=== PATIENT | male | born 1965 | race Two or more races ===

== ENCOUNTER 2016-12-15 14:56 | Emergency (ER) | payer MEDICAID, OTHER, SELFPAY ==
[~2016-12-15] VITALS: Ht 170.2 cm; Wt 88.5 kg
[2016-12-15] MEDS ORDERED: NORCO, ANEXSIA 5/325MG TABLET (HYDROcodone/ACETAMINOPHEN) PO ONE (16:45)
[2016-12-15 18:18] LABS: BASO % 0.2 % (0.0-1.0); EOS # 0.3 K/mm3 (0.0-0.50); EOS % 1.6 % (0.0-3.0); LARGE UNSTAINED CELL # 0.1 K/mm3 (0.0-0.4); LARGE UNSTAINED CELL % 0.6 % (0.0-4.0); LYMPH # 1.8 K/mm3 (1.5-4.5); LYMPH % 10.6 % (24.0-44.0); MEAN CORPUSCULAR HEMOGLOBIN 31.4 pg (27.0-33.0); MEAN CORPUSCULAR HGB CONC 33.5 g/dl (32.0-36.5); MEAN CORPUSCULAR VOLUME 93.8 fl (80.0-96.0); MONO # 0.8 K/mm3 (0.0-0.8); MONO % 5.2 % (0.0-5.0); NEUTROPHILS # 13.4 K/mm3 (1.8-7.7); PLATELET COUNT, AUTOMATED 302 k/mm3 (150-450); RED CELL DISTRIBUTION WIDTH 12.4 % (11.5-14.5); WHITE BLOOD COUNT 16.4 K/mm3 (4.0-10.0)
[2016-12-15 18:41] LABS: ANION GAP 8 MEQ/L (8-16); BLOOD UREA NITROGEN 12 MG/DL (7-18); CALCIUM LEVEL 9.4 MG/DL (8.5-10.1); CARBON DIOXIDE LEVEL 30 MEQ/L (21-32); CHLORIDE LEVEL 96 MEQ/L (98-107); GLOMERULAR FILTRATION RATE > 60.0 (>56); GLUCOSE, FASTING 119 MG/DL (70-105); POTASSIUM SERUM 4.1 MEQ/L (3.5-5.1); SODIUM LEVEL 134 MEQ/L (136-145)
[2016-12-15] MEDS ORDERED: FLOM5CAP PO (19:03)
[2016-12-15] MEDS ORDERED: CIPR500T89 PO (19:03)
[2016-12-15] MEDS ORDERED: CIPROFLOXACIN 500 MG TAB PO ONE (19:15)
[2016-12-15 19:19] VITALS: BP 144/78
== END 2016-12-15 19:39 | disposition home or self-care (01) ==
LOC: M ED 16:48
DX: N41.0 Acute prostatitis (principal); R33.9 Retention of urine, unspecified

== ENCOUNTER → 2016-12-15 | Outpatient (CLI) | payer OTHER ==
[~2016-12-15] MED LIST: CIPR500T89 PO; FLOM5CAP PO
--- NOTE | 2016-12-15 16:21 | REP ---
ABDOMINAL SERIES: Supine and erect views of the abdomen demonstrate no free air and no evidence for bowel obstruction. No dilated small bowel loops are seen. Mild fecal material is seen in the right colon. No abnormal calcifications are seen. There are mild degenerative changes of the spine. An accompanying view of the chest demonstrates no acute infiltrate. The heart is normal in size. IMPRESSION: Negative abdominal series. Signed by Endy Farah MD 12/15/2016 04:25 P
== END ==
LOC: M LRY 13:19
PROVIDERS: ATTEND Nurse Practitioner Family
DX: K59.00 Constipation, unspecified (principal)

== ENCOUNTER → 2016-12-15 | Outpatient (REF) | payer OTHER | LOC: M SFHCLERA 13:28 | PROVIDERS: ATTEND Nurse Practitioner Family | DX: R10.2 Pelvic and perineal pain (principal) ==

== ENCOUNTER → 2016-12-22 | Outpatient (REF) | payer SELFPAY ==
[2016-12-22 16:34] LABS: MEAN CORPUSCULAR HEMOGLOBIN 31.1 pg (27.0-33.0); MEAN CORPUSCULAR VOLUME 94.3 fl (80.0-96.0); RED CELL DISTRIBUTION WIDTH 11.9 % (11.5-14.5); WHITE BLOOD COUNT 10.6 K/mm3 (4.0-10.0)
[2016-12-22 16:37] LABS: ALBUMIN 3.4 GM/DL (3.2-5.2); ALBUMIN/GLOBULIN RATIO 0.85 (1.00-1.93); ALKALINE PHOSPHATASE 140 U/L (45-117); ALT/SGPT 70 U/L (12-78); ANION GAP 6 MEQ/L (8-16); AST/SGOT 22 U/L (15-37); BILIRUBIN,TOTAL 0.2 MG/DL (0.2-1.0); BLOOD UREA NITROGEN 11 MG/DL (7-18); CALCIUM LEVEL 8.5 MG/DL (8.5-10.1); CARBON DIOXIDE LEVEL 32 MEQ/L (21-32); CHLORIDE LEVEL 101 MEQ/L (98-107); CREATININE FOR GFR 0.81 MG/DL (0.70-1.30); GLOMERULAR FILTRATION RATE > 60.0 (>56); GLUCOSE, FASTING 98 MG/DL (70-105); POTASSIUM SERUM 4.3 MEQ/L (3.5-5.1); SODIUM LEVEL 139 MEQ/L (136-145); TOTAL PROTEIN 7.4 GM/DL (6.4-8.2)
== END ==
LOC: M LABDRAW1 15:25
PROVIDERS: ATTEND Family Medicine
DX: K62.5 Hemorrhage of anus and rectum (principal)

== ENCOUNTER → 2021-01-24 | Outpatient (REF) | payer OTHER ==
[~2021-01-24] MED LIST changes: +CIPR-249 PO; -CIPR500T89 PO; +FLOM0.4C39 PO; -FLOM5CAP PO
[2021-01-24 10:31] LABS: BASO % 0.3 % (0.0-1.0); EOS # 0.2 10^3/uL (0.0-0.5); EOS % 1.7 % (0.0-3.0); HEMATOCRIT 46.7 % (42.0-52.0); HEMOGLOBIN 14.6 g/dl (13.5-17.5); LYMPH % 23.8 % (24.0-44.0); MEAN CORPUSCULAR HEMOGLOBIN 29.3 pg (27.0-33.0); MEAN CORPUSCULAR HGB CONC 31.3 g/dl (32.0-36.5); MEAN CORPUSCULAR VOLUME 93.8 fl (80.0-96.0); MONO # 0.9 10^3/uL (0.0-0.8); MONO % 7.4 % (2.0-8.0); NEUTROPHILS # 8.3 10^3/uL (1.5-8.5); NEUTROPHILS % 66.4 % (36.0-66.0); PLATELET COUNT, AUTOMATED 340 10^3/uL (150-450); RED BLOOD COUNT 4.98 10^6/uL (4.30-6.10); WHITE BLOOD COUNT 12.6 10^3/uL (4.0-10.0)
[2021-01-24 11:01] LABS: ALBUMIN 3.5 GM/DL (3.2-5.2); ALT/SGPT 55 U/L (12-78); BILIRUBIN,TOTAL 0.3 MG/DL (0.2-1.0); BLOOD UREA NITROGEN 15 MG/DL (7-18); CALCIUM LEVEL 8.3 MG/DL (8.5-10.1); CARBON DIOXIDE LEVEL 31 MEQ/L (21-32); CHLORIDE LEVEL 103 MEQ/L (98-107); CHOLESTEROL LEVEL 134 MG/DL (<200); CREATININE FOR GFR 0.79 MG/DL (0.70-1.30); GLOMERULAR FILTRATION RATE > 60.0 (>56); GLUCOSE, FASTING 105 MG/DL (70-100); HDL CHOLESTEROL 40 MG/DL (>40); LDL CHOLESTEROL 76 MG/DL (<100); NON-HDL-C 94 MG/DL; POTASSIUM SERUM 4.4 MEQ/L (3.5-5.1); SODIUM LEVEL 138 MEQ/L (136-145); TOTAL PROTEIN 7.5 GM/DL (6.4-8.2); TRIGLYCERIDES LEVEL 92 MG/DL (<150)
== END ==
LOC: M SFHCPLAZ 09:42
PROVIDERS: ATTEND Family Medicine
DX: E78.5 Hyperlipidemia, unspecified (principal); R63.5 Abnormal weight gain

== ENCOUNTER → 2021-03-07 | Outpatient (CLI) | payer OTHER ==
[~2021-03-07] MED LIST changes: +ASPI81TA26; +ATOR80TA59; +CLOP75TA2; +HYDR-3490; +IRBE150T7; +METO1TAB87; +TREL1AER
== END ==
LOC: M LABSMTC 13:20
PROVIDERS: ATTEND Anesthesiology
DX: Z01.812 Encounter for preprocedural laboratory examination (principal)

== ENCOUNTER 2021-03-12 07:03 | Day surgery (SDC) | payer OTHER ==
[~2021-03-12] VITALS: Ht 167.6 cm; Wt 111.6 kg
[~2021-03-12 07:03] MED LIST changes: +NS 1,000 ML IV ONE
[2021-03-12] MEDS ORDERED: propofoL 200 MG/20 ML VIAL As Ordered ONE (09:08)
--- NOTE | 2021-03-12 09:23 | ROOR ---
Patient Name: Edwardo Ignacio Procedure Date: 03/12/2021 8:56 AM Date of : 1965 Age: 55 Room: [facility] Gender: Male Note Status: Finalized Procedure: Colonoscopy Indications: Screening for colorectal malignant neoplasm Providers: Endy Barbosa DO Referring MD: Mian Roe DO Requesting Provider: Medicines: Propofol per Anesthesia Complications: No immediate complications. Procedure: Pre-Anesthesia Assessment: - Prior to the procedure, a History and Physical was performed, and patient medications and allergies were reviewed. The patient is competent. The risks and benefits of the procedure and the sedation options and risks were discussed with the patient. All questions were answered and informed consent was obtained. Patient identification and proposed procedure were verified by the physician, the nurse, the salicylic acid blender and the polysomnography technician in the endoscopy suite. Mental Status Examination: alert and oriented. Airway Examination: normal oropharyngeal airway and neck mobility. Respiratory Examination: clear to auscultation. CV Examination: normal. Prophylactic Antibiotics: The patient does not require prophylactic antibiotics. Prior Anticoagulants: The patient has taken no previous anticoagulant or antiplatelet agents. ASA Grade Assessment: II - A patient with mild systemic disease. After reviewing the risks and benefits, the patient was deemed in satisfactory condition to undergo the procedure. The anesthesia plan was to use monitored anesthesia care (MAC). Immediately prior to administration of medications, the patient was re-assessed for adequacy to receive sedatives. The heart rate, respiratory rate, oxygen saturations, blood pressure, adequacy of pulmonary ventilation, and response to care were monitored throughout the procedure. The physical status of the patient was re-assessed after the procedure. The Colonoscope was introduced through the anus and advanced to the cecum, identified by appendiceal orifice and ileocecal valve. The colonoscopy was performed without difficulty. The patient tolerated the procedure well. Findings: Multiple small-mouthed diverticula were found in the sigmoid colon. Two hyperplastic polyps were found in the transverse colon. The polyps were 2 to 4 mm in size. These polyps were removed with a jumbo cold forceps. Resection and retrieval were complete. Estimated blood loss was minimal. Non-bleeding internal hemorrhoids were found during retroflexion. The hemorrhoids were small and Grade I (internal hemorrhoids that do not prolapse). Impression: - Diverticulosis in the sigmoid colon. - Two 2 to 4 mm polyps in the transverse colon, removed with a jumbo cold forceps. Resected and retrieved. - Non-bleeding internal hemorrhoids. Recommendation: - Patient has a contact number available for emergencies. The signs and symptoms of potential delayed complications were discussed with the patient. Return to normal activities tomorrow. Written discharge instructions were provided to the patient. - Await pathology results. - Repeat colonoscopy in 3 - 5 years for surveillance based on pathology results. - Return to my office at appointment to be scheduled. Procedure Code(s): --- Professional --- 52214, Colonoscopy, flexible; with biopsy, single or multiple Diagnosis Code(s): --- Professional --- Z12.11, Encounter for screening for malignant neoplasm of colon K64.0, First degree hemorrhoids K63.5, Polyp of colon K57.30, Diverticulosis of large intestine without perforation or abscess without bleeding CPT copyright 2019 [employer]. All rights reserved. The codes documented in this report are preliminary and upon counter roller review may be revised to meet current compliance requirements. Endy Barbosa DO 03/12/2021 9:22:34 AM Electronically signed by Endy Barbosa DO Number of Addenda: 0 Note Initiated On: 03/12/2021 8:56 AM Estimated Blood Loss: Estimated blood loss was minimal.
[2021-03-12 09:53] VITALS: BP 148/90
== END 2021-03-12 09:53 | disposition home or self-care (01) ==
LOC: M OPP 07:03
PROVIDERS: ATTEND Surgery
DX: Z12.11 Encounter for screening for malignant neoplasm of colon (principal); K57.30 Diverticulosis of large intestine without perforation or abscess without bleeding; K64.0 First degree hemorrhoids; K63.5 Polyp of colon; K42.9 Umbilical hernia without obstruction or gangrene; M62.00 Separation of muscle (nontraumatic), unspecified site; Z79.82 Long term (current) use of aspirin; Z79.899 Other long term (current) drug therapy; Z95.5 Presence of coronary angioplasty implant and graft

== ENCOUNTER 2022-02-09 06:15 | Inpatient (IN) | payer OTHER ==
[~2022-02-09] VITALS: Ht 167.6 cm; Wt 90.5 kg
[~2022-02-09 06:15] MED LIST changes: -ASPI81TA26; +ASPI81TA26 PO; -ATOR80TA59; +ATOR80TA59 PO; -CLOP75TA2; +CLOP75TA2 PO; -HYDR-3490; +HYDR-3490 PO; -IRBE150T7; +IRBE150T7 PO; -METO1TAB87; +METO1TAB87 PO; -NS 1,000 ML IV ONE
[2022-02-09] MEDS ORDERED: NAPR-885 PO (06:47)
[2022-02-09] MEDS ORDERED: TIZA4CAP PO (06:47)
[2022-02-09] MEDS ORDERED: ALBU2.5V10 INH (06:54)
[2022-02-09] MEDS ORDERED: ACETAMINOPHEN 500 MG TAB PO ONE (07:45)
[2022-02-09 08:48] LABS: RSV AMPLIFICATION NEGATIVE (NEGATIVE)
[2022-02-09 09:12] LABS: BASO % 0.3 % (0.0-1.0); HEMOGLOBIN 11.3 g/dl (13.5-17.5); LYMPH % 9.9 % (24.0-44.0); MEAN CORPUSCULAR HGB CONC 32.3 g/dl (32.0-36.5); MEAN CORPUSCULAR VOLUME 80.6 fl (80.0-96.0); MONO # 0.9 10^3/uL (0.0-0.8); MONO % 9.3 % (2.0-8.0); NEUTROPHILS # 7.7 10^3/uL (1.5-8.5); NEUTROPHILS % 79.9 % (36.0-66.0); PLATELET COUNT, AUTOMATED 359 10^3/uL (150-450); RED BLOOD COUNT 4.34 10^6/uL (4.30-6.10); WHITE BLOOD COUNT 9.6 10^3/uL (4.0-10.0)
[2022-02-09 09:43] LABS: ALBUMIN 2.1 GM/DL (3.2-5.2); ALT/SGPT 48 U/L (12-78); AMYLASE 21 U/L (25-115); BILIRUBIN,TOTAL 0.4 MG/DL (0.2-1.0); BLOOD UREA NITROGEN 17 MG/DL (7-18); CALCIUM LEVEL 8.7 MG/DL (8.5-10.1); CARBON DIOXIDE LEVEL 30 MEQ/L (21-32); CHLORIDE LEVEL 97 MEQ/L (98-107); CREATININE FOR GFR 1.16 MG/DL (0.70-1.30); GLOMERULAR FILTRATION RATE > 60.0 (>56); GLUCOSE, FASTING 120 MG/DL (70-100); POTASSIUM SERUM 3.3 MEQ/L (3.5-5.1); SODIUM LEVEL 133 MEQ/L (136-145); TOTAL PROTEIN 7.6 GM/DL (6.4-8.2)
[2022-02-09] MEDS ORDERED: MORPHINE 2 MG/ML 1ML VIAL IV ONE (10:15)
[2022-02-09] MEDS ORDERED: NS 1,000 ML IV ONE (10:15)
[2022-02-09] MEDS ORDERED: ISOVUE-370 76% 100ML VIAL As Ordered ONE (10:25)
[2022-02-09] MEDS ORDERED: POTASSIUM CHLORIDE 10MEQ SR TABLET PO ONE (10:55)
[2022-02-09] MEDS ORDERED: PIPERACILLIN/TAZOBACTAM SOD 3.375 GM in D5W MINI-BAG PLUS 50 ML IV ONE (11:35)
[2022-02-09] MEDS ORDERED: LR 1,000 ML IV SCH (12:35)
[2022-02-09] MEDS ORDERED: ONDANSETRON 4MG/2ML VIAL IV PRN (12:45)
[2022-02-09] MEDS ORDERED: NITR0.4S14 SL (13:50)
[2022-02-09] MEDS ORDERED: HOME MED LIST COMPLETE! XX SCH (13:50)
[2022-02-09] MEDS ORDERED: ADVI200T PO (13:50)
[2022-02-09] MEDS: PANTOPRAZOLE 40MG VIAL IV SCH (14:12)
[2022-02-09] MEDS: MORPHINE 2 MG/ML 1ML VIAL IV PRN ×2 (14:13→19:37)
[2022-02-09] MEDS: KETOROLAC 30 MG/ML 1ML VIAL IV PRN ×2 (14:14→23:52)
[2022-02-09] MEDS: PIPERACILLIN/TAZOBACTAM SOD 3.375 GM in D5W MINI-BAG PLUS 50 ML IV SCH ×2 (17:47→23:51)
[2022-02-09 18:00] VITALS: BP 131/77
[2022-02-09] MEDS: NS 1,000 ML IV SCH (18:53)
[2022-02-09] MEDS: HEPARIN SOD (PORCINE) 5000UNITS/ML 1ML VIAL/SYRINGE SQ SCH (19:40)
[2022-02-09] MEDS: IRBESARTAN 150MG TAB PO SCH (19:40)
[2022-02-09] MEDS: METOPROLOL TART 25 MG TABLET PO SCH (19:41)
[2022-02-09 21:00] VITALS: BP 133/79
[2022-02-10] MEDS: NS 1,000 ML IV SCH ×3 (05:34→20:16)
[2022-02-10] MEDS: PIPERACILLIN/TAZOBACTAM SOD 3.375 GM in D5W MINI-BAG PLUS 50 ML IV SCH ×4 (05:35→23:32)
[2022-02-10] MEDS: MORPHINE 2 MG/ML 1ML VIAL IV PRN ×4 (05:35→22:37)
[2022-02-10 05:57] LABS: HEMATOCRIT 33.7 % (42.0-52.0); HEMOGLOBIN 10.3 g/dl (13.5-17.5); MEAN CORPUSCULAR HGB CONC 30.6 g/dl (32.0-36.5); MEAN CORPUSCULAR VOLUME 81.8 fl (80.0-96.0); PLATELET COUNT, AUTOMATED 328 10^3/uL (150-450); RED BLOOD COUNT 4.12 10^6/uL (4.30-6.10); WHITE BLOOD COUNT 10.2 10^3/uL (4.0-10.0)
[2022-02-10 06:00] VITALS: BP 137/80
[2022-02-10 06:22] LABS: ALBUMIN 1.9 GM/DL (3.2-5.2); ALT/SGPT 36 U/L (12-78); BILIRUBIN,TOTAL 0.4 MG/DL (0.2-1.0); BLOOD UREA NITROGEN 13 MG/DL (7-18); CALCIUM LEVEL 8.4 MG/DL (8.5-10.1); CARBON DIOXIDE LEVEL 33 MEQ/L (21-32); CHLORIDE LEVEL 99 MEQ/L (98-107); CREATININE FOR GFR 1.03 MG/DL (0.70-1.30); GLOMERULAR FILTRATION RATE > 60.0 (>56); GLUCOSE, FASTING 103 MG/DL (70-100); POTASSIUM SERUM 3.8 MEQ/L (3.5-5.1); SODIUM LEVEL 137 MEQ/L (136-145); TOTAL PROTEIN 7.1 GM/DL (6.4-8.2)
[2022-02-10] MEDS: METOPROLOL TART 25 MG TABLET PO SCH ×2 (08:43→20:19)
[2022-02-10] MEDS: CLOPIDOGREL 75 MG TAB PO SCH (08:44)
[2022-02-10] MEDS: ATORVASTATIN 20 MG TAB PO SCH (08:44)
[2022-02-10] MEDS: PANTOPRAZOLE 40MG VIAL IV SCH (08:44)
[2022-02-10] MEDS: HEPARIN SOD (PORCINE) 5000UNITS/ML 1ML VIAL/SYRINGE SQ SCH ×2 (08:44→20:16)
[2022-02-10] MEDS: ASPIRIN 81MG ENTERIC TABLET PO SCH (08:44)
[2022-02-10] MEDS: ACETAMINOPHEN TAB 650MG DOSE (2X325MG) PO PRN (13:49)
[2022-02-10 14:00] VITALS: BP 136/79
[2022-02-10] MEDS: IRBESARTAN 150MG TAB PO SCH (20:19)
[2022-02-10 22:00] VITALS: BP 138/72
[2022-02-11] MEDS: KETOROLAC 30 MG/ML 1ML VIAL IV PRN ×3 (02:18→15:10)
[2022-02-11] MEDS: MORPHINE 2 MG/ML 1ML VIAL IV PRN ×4 (05:45→20:44)
[2022-02-11] MEDS: PIPERACILLIN/TAZOBACTAM SOD 3.375 GM in D5W MINI-BAG PLUS 50 ML IV SCH ×4 (05:45→23:59)
[2022-02-11 06:00] VITALS: BP 124/83
[2022-02-11 06:18] LABS: HEMATOCRIT 27.4 % (42.0-52.0); HEMOGLOBIN 8.5 g/dl (13.5-17.5); MEAN CORPUSCULAR HEMOGLOBIN 25.8 pg (27.0-33.0); PLATELET COUNT, AUTOMATED 287 10^3/uL (150-450); WHITE BLOOD COUNT 8.7 10^3/uL (4.0-10.0)
[2022-02-11 06:50] LABS: ALBUMIN 1.8 GM/DL (3.2-5.2); ALT/SGPT 26 U/L (12-78); BILIRUBIN,TOTAL 0.4 MG/DL (0.2-1.0); BLOOD UREA NITROGEN 9 MG/DL (7-18); CALCIUM LEVEL 7.9 MG/DL (8.5-10.1); CARBON DIOXIDE LEVEL 32 MEQ/L (21-32); CHLORIDE LEVEL 101 MEQ/L (98-107); CREATININE FOR GFR 0.89 MG/DL (0.70-1.30); GLOMERULAR FILTRATION RATE > 60.0 (>56); GLUCOSE, FASTING 98 MG/DL (70-100); POTASSIUM SERUM 3.4 MEQ/L (3.5-5.1); SODIUM LEVEL 136 MEQ/L (136-145)
[2022-02-11] MEDS: CLOPIDOGREL 75 MG TAB PO SCH (08:44)
[2022-02-11] MEDS: PANTOPRAZOLE 40MG VIAL IV SCH (08:44)
[2022-02-11] MEDS: ATORVASTATIN 20 MG TAB PO SCH (08:44)
[2022-02-11] MEDS: ASPIRIN 81MG ENTERIC TABLET PO SCH (08:44)
[2022-02-11] MEDS: METOPROLOL TART 25 MG TABLET PO SCH ×2 (08:45→20:35)
[2022-02-11] MEDS: HEPARIN SOD (PORCINE) 5000UNITS/ML 1ML VIAL/SYRINGE SQ SCH ×2 (08:46→20:36)
[2022-02-11] MEDS: NS 1,000 ML IV SCH ×2 (10:06→22:45)
[2022-02-11] MEDS ORDERED: POTASSIUM CHLORIDE 10MEQ SR TABLET PO ONE (13:55)
[2022-02-11 14:00] VITALS: BP 127/80
[2022-02-11] MEDS: IRBESARTAN 150MG TAB PO SCH (20:36)
[2022-02-11 21:51] VITALS: BP 153/89
[2022-02-11] MEDS ORDERED: KETOROLAC 30 MG/ML 1ML VIAL IV ONE (21:55)
[2022-02-11 22:00] VITALS: BP 164/88
[2022-02-12] MEDS: MORPHINE 2 MG/ML 1ML VIAL IV PRN ×4 (01:11→20:25)
[2022-02-12 05:26] LABS: HEMOGLOBIN 9.7 g/dl (13.5-17.5); MEAN CORPUSCULAR HEMOGLOBIN 25.8 pg (27.0-33.0); MEAN CORPUSCULAR HGB CONC 31.3 g/dl (32.0-36.5); MEAN CORPUSCULAR VOLUME 82.4 fl (80.0-96.0); PLATELET COUNT, AUTOMATED 300 10^3/uL (150-450); RED BLOOD COUNT 3.76 10^6/uL (4.30-6.10)
[2022-02-12] MEDS: PIPERACILLIN/TAZOBACTAM SOD 3.375 GM in D5W MINI-BAG PLUS 50 ML IV SCH ×4 (05:41→23:52)
[2022-02-12 05:49] LABS: BLOOD UREA NITROGEN 7 MG/DL (7-18); CALCIUM LEVEL 8.3 MG/DL (8.5-10.1); CARBON DIOXIDE LEVEL 30 MEQ/L (21-32); CHLORIDE LEVEL 102 MEQ/L (98-107); GLOMERULAR FILTRATION RATE > 60.0 (>56); GLUCOSE, FASTING 104 MG/DL (70-100); POTASSIUM SERUM 3.4 MEQ/L (3.5-5.1); SODIUM LEVEL 137 MEQ/L (136-145)
[2022-02-12 06:00] VITALS: BP 158/77
[2022-02-12] MEDS: ATORVASTATIN 20 MG TAB PO SCH (07:48)
[2022-02-12] MEDS: CLOPIDOGREL 75 MG TAB PO SCH (07:48)
[2022-02-12] MEDS: HEPARIN SOD (PORCINE) 5000UNITS/ML 1ML VIAL/SYRINGE SQ SCH ×2 (07:48→20:26)
[2022-02-12] MEDS: PANTOPRAZOLE 40MG VIAL IV SCH (07:48)
[2022-02-12] MEDS: ASPIRIN 81MG ENTERIC TABLET PO SCH (07:48)
[2022-02-12] MEDS: METOPROLOL TART 25 MG TABLET PO SCH ×2 (07:50→20:25)
[2022-02-12] MEDS: ACETAMINOPHEN TAB 650MG DOSE (2X325MG) PO PRN ×2 (07:56→20:37)
[2022-02-12] MEDS: NS 1,000 ML IV SCH (09:48)
[2022-02-12] MEDS ORDERED: ISOVUE-370 76% 100ML VIAL As Ordered ONE (10:11)
[2022-02-12 14:00] VITALS: BP 156/88
[2022-02-12 20:00] VITALS: BP 170/78
[2022-02-12] MEDS: IRBESARTAN 150MG TAB PO SCH (20:25)
[2022-02-12] MEDS: KETOROLAC 30 MG/ML 1ML VIAL IV PRN (23:52)
[2022-02-13] MEDS: NS 1,000 ML IV SCH ×2 (02:48→08:25)
[2022-02-13] MEDS: MORPHINE 2 MG/ML 1ML VIAL IV PRN ×3 (02:57→16:29)
[2022-02-13 05:20] VITALS: BP 173/94
[2022-02-13] MEDS: PIPERACILLIN/TAZOBACTAM SOD 3.375 GM in D5W MINI-BAG PLUS 50 ML IV SCH ×4 (05:28→23:03)
[2022-02-13 06:02] LABS: HEMATOCRIT 28.4 % (42.0-52.0); HEMOGLOBIN 8.7 g/dl (13.5-17.5); MEAN CORPUSCULAR HEMOGLOBIN 25.1 pg (27.0-33.0); MEAN CORPUSCULAR HGB CONC 30.6 g/dl (32.0-36.5); MEAN CORPUSCULAR VOLUME 82.1 fl (80.0-96.0); PLATELET COUNT, AUTOMATED 311 10^3/uL (150-450); RED BLOOD COUNT 3.46 10^6/uL (4.30-6.10)
[2022-02-13 06:35] VITALS: BP 152/74
[2022-02-13 06:39] LABS: BLOOD UREA NITROGEN 6 MG/DL (7-18); CALCIUM LEVEL 8.1 MG/DL (8.5-10.1); CARBON DIOXIDE LEVEL 26 MEQ/L (21-32); CHLORIDE LEVEL 103 MEQ/L (98-107); GLOMERULAR FILTRATION RATE > 60.0 (>56); GLUCOSE, FASTING 91 MG/DL (70-100); POTASSIUM SERUM 3.7 MEQ/L (3.5-5.1); SODIUM LEVEL 135 MEQ/L (136-145)
[2022-02-13] MEDS: ASPIRIN 81MG ENTERIC TABLET PO SCH (08:23)
[2022-02-13] MEDS: CLOPIDOGREL 75 MG TAB PO SCH (08:24)
[2022-02-13] MEDS: ATORVASTATIN 20 MG TAB PO SCH (08:24)
[2022-02-13] MEDS: HEPARIN SOD (PORCINE) 5000UNITS/ML 1ML VIAL/SYRINGE SQ SCH (08:25)
[2022-02-13] MEDS: METOPROLOL TART 25 MG TABLET PO SCH ×2 (08:29→21:02)
[2022-02-13] MEDS: PANTOPRAZOLE 40MG VIAL IV SCH (08:35)
[2022-02-13] MEDS: KETOROLAC 30 MG/ML 1ML VIAL IV PRN ×2 (10:37→18:45)
[2022-02-13 11:08] VITALS: BP 166/90
[2022-02-13] MEDS ORDERED: LIDOCAINE 1% MDV 20ML VIAL As Ordered ONE (14:33)
[2022-02-13 16:14] VITALS: BP 179/102
[2022-02-13] MEDS: IRBESARTAN 150MG TAB PO SCH (21:02)
[2022-02-13 22:00] VITALS: BP 160/95
[2022-02-13] MEDS: MORPHINE 4 MG/ML 1ML VIAL/SYRINGE IV PRN (23:07)
[2022-02-14] MEDS: KETOROLAC 30 MG/ML 1ML VIAL IV PRN ×2 (02:31→08:18)
[2022-02-14] MEDS: PIPERACILLIN/TAZOBACTAM SOD 3.375 GM in D5W MINI-BAG PLUS 50 ML IV SCH ×3 (05:52→17:06)
[2022-02-14] MEDS: MORPHINE 4 MG/ML 1ML VIAL/SYRINGE IV PRN ×4 (05:54→21:25)
[2022-02-14 06:00] VITALS: BP 163/94
[2022-02-14 06:11] LABS: HEMATOCRIT 28.8 % (42.0-52.0); HEMOGLOBIN 9.1 g/dl (13.5-17.5); MEAN CORPUSCULAR HEMOGLOBIN 25.9 pg (27.0-33.0); MEAN CORPUSCULAR HGB CONC 31.6 g/dl (32.0-36.5); MEAN CORPUSCULAR VOLUME 81.8 fl (80.0-96.0); PLATELET COUNT, AUTOMATED 341 10^3/uL (150-450); RED BLOOD COUNT 3.52 10^6/uL (4.30-6.10); WHITE BLOOD COUNT 9.7 10^3/uL (4.0-10.0)
[2022-02-14 06:29] LABS: BLOOD UREA NITROGEN 6 MG/DL (7-18); CARBON DIOXIDE LEVEL 26 MEQ/L (21-32); CHLORIDE LEVEL 104 MEQ/L (98-107); GLOMERULAR FILTRATION RATE > 60.0 (>56); GLUCOSE, FASTING 101 MG/DL (70-100); POTASSIUM SERUM 3.3 MEQ/L (3.5-5.1); SODIUM LEVEL 139 MEQ/L (136-145)
[2022-02-14] MEDS: ATORVASTATIN 20 MG TAB PO SCH (08:14)
[2022-02-14] MEDS: METOPROLOL TART 25 MG TABLET PO SCH ×2 (08:17→21:30)
[2022-02-14] MEDS: PANTOPRAZOLE 40MG VIAL IV SCH (08:18)
[2022-02-14] MEDS: ASPIRIN 81MG ENTERIC TABLET PO SCH (08:18)
[2022-02-14 13:55] VITALS: BP 139/82
[2022-02-14 21:30] VITALS: BP 172/90
[2022-02-14] MEDS: IRBESARTAN 150MG TAB PO SCH (21:30)
[2022-02-14 22:30] VITALS: BP 148/82
[2022-02-15] MEDS: PIPERACILLIN/TAZOBACTAM SOD 3.375 GM in D5W MINI-BAG PLUS 50 ML IV SCH ×5 (00:54→23:25)
[2022-02-15] MEDS ORDERED: guaiFENesin DM LIQ 10ML UD PO PRN (01:50)
[2022-02-15] MEDS: MORPHINE 4 MG/ML 1ML VIAL/SYRINGE IV PRN ×5 (02:28→23:24)
[2022-02-15] MEDS ORDERED: ACETAMINOPHEN *IV* 1,000 MG in IV 1 EA IV ONE (05:05)
[2022-02-15 05:52] LABS: HEMATOCRIT 28.7 % (42.0-52.0); HEMOGLOBIN 8.9 g/dl (13.5-17.5); MEAN CORPUSCULAR HEMOGLOBIN 24.9 pg (27.0-33.0); MEAN CORPUSCULAR VOLUME 80.4 fl (80.0-96.0); PLATELET COUNT, AUTOMATED 403 10^3/uL (150-450); RED BLOOD COUNT 3.57 10^6/uL (4.30-6.10); WHITE BLOOD COUNT 12.1 10^3/uL (4.0-10.0)
[2022-02-15 06:00] VITALS: BP 116/87
[2022-02-15 06:21] LABS: BLOOD UREA NITROGEN 4 MG/DL (7-18); CALCIUM LEVEL 8.5 MG/DL (8.5-10.1); CARBON DIOXIDE LEVEL 28 MEQ/L (21-32); CHLORIDE LEVEL 103 MEQ/L (98-107); GLOMERULAR FILTRATION RATE > 60.0 (>56); GLUCOSE, FASTING 103 MG/DL (70-100); SODIUM LEVEL 139 MEQ/L (136-145)
[2022-02-15] MEDS: PANTOPRAZOLE 40MG VIAL IV SCH (08:35)
[2022-02-15] MEDS: ATORVASTATIN 20 MG TAB PO SCH (08:36)
[2022-02-15] MEDS: ASPIRIN 81MG ENTERIC TABLET PO SCH (08:36)
[2022-02-15] MEDS: METOPROLOL TART 25 MG TABLET PO SCH ×2 (08:39→19:50)
[2022-02-15] MEDS ORDERED: FUROSEMIDE 40MG/4ML VIAL (J1940) IV ONE (09:30)
[2022-02-15] MEDS ORDERED: POTASSIUM CHLORIDE 10MEQ SR TABLET PO ONE ×2 (09:30→14:00)
[2022-02-15 14:00] VITALS: BP 161/91
[2022-02-15] MEDS: IRBESARTAN 150MG TAB PO SCH (19:51)
[2022-02-15 22:00] VITALS: BP 162/90
[2022-02-16] MEDS: MORPHINE 4 MG/ML 1ML VIAL/SYRINGE IV PRN (04:15)
[2022-02-16 06:00] VITALS: BP 160/81
[2022-02-16] MEDS: PIPERACILLIN/TAZOBACTAM SOD 3.375 GM in D5W MINI-BAG PLUS 50 ML IV SCH ×2 (06:02→12:00)
[2022-02-16] MEDS ORDERED: POTASSIUM CHLORIDE 10MEQ SR TABLET PO ONE ×2 (07:25→08:25)
[2022-02-16] MEDS: PANTOPRAZOLE 40MG VIAL IV SCH (07:53)
[2022-02-16] MEDS: ASPIRIN 81MG ENTERIC TABLET PO SCH (07:55)
[2022-02-16 07:56] VITALS: BP 160/96
[2022-02-16] MEDS: METOPROLOL TART 25 MG TABLET PO SCH (07:56)
[2022-02-16] MEDS: ATORVASTATIN 20 MG TAB PO SCH (07:56)
[2022-02-16 08:44] LABS: HEMATOCRIT 29.9 % (42.0-52.0); HEMOGLOBIN 9.2 g/dl (13.5-17.5); MEAN CORPUSCULAR HEMOGLOBIN 25.1 pg (27.0-33.0); MEAN CORPUSCULAR HGB CONC 30.8 g/dl (32.0-36.5); MEAN CORPUSCULAR VOLUME 81.5 fl (80.0-96.0); PLATELET COUNT, AUTOMATED 481 10^3/uL (150-450); RED BLOOD COUNT 3.67 10^6/uL (4.30-6.10); WHITE BLOOD COUNT 13.5 10^3/uL (4.0-10.0)
[2022-02-16 09:12] LABS: BLOOD UREA NITROGEN 5 MG/DL (7-18); CALCIUM LEVEL 8.8 MG/DL (8.5-10.1); CARBON DIOXIDE LEVEL 26 MEQ/L (21-32); CHLORIDE LEVEL 104 MEQ/L (98-107); CREATININE FOR GFR 0.92 MG/DL (0.70-1.30); GLOMERULAR FILTRATION RATE > 60.0 (>56); GLUCOSE, FASTING 115 MG/DL (70-100); POTASSIUM SERUM 3.9 MEQ/L (3.5-5.1); SODIUM LEVEL 139 MEQ/L (136-145)
[2022-02-16] MEDS ORDERED: PROB250C PO (12:05)
[2022-02-16] MEDS ORDERED: PANT40TA29 PO (12:05)
[2022-02-16] MEDS ORDERED: LEVO750T13 PO (12:05)
[2022-02-16] MEDS ORDERED: METR375C3 PO (12:05)
== END 2022-02-16 12:32 | disposition home or self-care (01) | DRG 468 ==
LOC: M ED 06:15 → M ED INP 12:35 → ENRESERV 14:51 → M MSPAV 16:39
PROVIDERS: ADMIT Internal Medicine Nephrology; ATTEND Internal Medicine
PROC: 0W9J30Z Drainage of Pelvic Cavity with Drainage Device, Percutaneous Approach (ICD-10-PCS; principal; 2022-02-13 14:30)
DX: N32.1 Vesicointestinal fistula (principal); K65.1 Peritoneal abscess; K57.20 Diverticulitis of large intestine with perforation and abscess without bleeding; N13.6 Pyonephrosis; K76.0 Fatty (change of) liver, not elsewhere classified; E66.9 Obesity, unspecified; E78.5 Hyperlipidemia, unspecified; E87.6 Hypokalemia; F17.200 Nicotine dependence, unspecified, uncomplicated; I10 Essential (primary) hypertension; I25.10 Atherosclerotic heart disease of native coronary artery without angina pectoris; K21.9 Gastro-esophageal reflux disease without esophagitis; K42.9 Umbilical hernia without obstruction or gangrene; Z68.31 Body mass index [BMI] 31.0-31.9, adult; N39.0 Urinary tract infection, site not specified; B96.29 Other Escherichia coli [E. coli] as the cause of diseases classified elsewhere; M54.50 Low back pain, unspecified; Z95.2 Presence of prosthetic heart valve; Z79.82 Long term (current) use of aspirin; Z79.899 Other long term (current) drug therapy

== ENCOUNTER 2022-02-18 00:32 | Emergency (ER) | payer OTHER ==
[~2022-02-18] VITALS: Ht 170.2 cm; Wt 86.4 kg
[~2022-02-18 00:32] MED LIST changes: +ADVI200T PO; +ALBU2.5V10 INH; +LEVO750T13 PO; +METR375C3 PO; +NAPR-885 PO; +NITR0.4S14 SL; +PANT40TA29 PO; +PROB250C PO; +TIZA4CAP PO
[2022-02-18 00:34] VITALS: BP 166/79
== END 2022-02-18 02:55 | disposition left against medical advice (07) ==
LOC: M ED 00:32
DX: Z53.21 Procedure and treatment not carried out due to patient leaving prior to being seen by health care provider (principal)

== ENCOUNTER → 2022-02-27 | Outpatient (CLI) | payer OTHER ==
[~2022-02-27] MED LIST changes: +GASTROGRAFIN SOLUTION 30ML (Q9963) ONE; +ISOVUE-370 76% 100ML VIAL ONE
== END ==
LOC: M PLAIMG 08:55
PROVIDERS: ATTEND Surgery
DX: K57.20 Diverticulitis of large intestine with perforation and abscess without bleeding (principal)

== ENCOUNTER → 2023-11-30 | Outpatient (REF) ==
[~2023-11-30] MED LIST changes: -GASTROGRAFIN SOLUTION 30ML (Q9963) ONE; +IRBE150T27 PO; -IRBE150T7 PO; -ISOVUE-370 76% 100ML VIAL ONE; +LEVO1TAB40 PO; -LEVO750T13 PO
== END ==
LOC: M PLAIMG 12:49
PROVIDERS: ATTEND Internal Medicine
DX: R52 Pain, unspecified (principal)

== ENCOUNTER → 2024-08-09 | Outpatient (REF) | payer OTHER ==
[2024-08-09 16:57] LABS: BASO # 0.1 10^3/uL (0.0-0.2); BASO % 0.4 % (0.0-1.0); EOS # 0.3 10^3/uL (0.0-0.5); EOS % 2.4 % (0.0-3.0); HEMATOCRIT 48.3 % (42.0-52.0); HEMOGLOBIN 15.8 g/dl (13.5-17.5); LYMPH # 2.1 10^3/uL (1.5-5.0); LYMPH % 16.5 % (24.0-44.0); MEAN CORPUSCULAR HEMOGLOBIN 31.2 pg (27.0-33.0); MEAN CORPUSCULAR HGB CONC 32.7 g/dl (32.0-36.5); MEAN CORPUSCULAR VOLUME 95.5 fl (80.0-96.0); MONO # 0.7 10^3/uL (0.0-0.8); MONO % 5.3 % (2.0-8.0); NEUTROPHILS # 9.6 10^3/uL (1.5-8.5); NEUTROPHILS % 74.4 % (36.0-66.0); PLATELET COUNT, AUTOMATED 282 10^3/uL (150-450); RED BLOOD COUNT 5.06 10^6/uL (4.30-6.10); WHITE BLOOD COUNT 12.9 10^3/uL (4.0-10.0)
[2024-08-09 17:29] LABS: ALBUMIN 3.5 G/DL (3.2-5.2); ALKALINE PHOSPHATASE 123 U/L (40-129); ALT/SGPT 67 U/L (7.0-40); AST/SGOT 23 U/L (<34); BILIRUBIN,TOTAL 0.2 MG/DL (0.3-1.2); BLOOD UREA NITROGEN 22 MG/DL (9-23); CALCIUM LEVEL 9.6 MG/DL (8.5-10.1); CARBON DIOXIDE LEVEL 28 MMOL/L (20-31); CHLORIDE LEVEL 102 MMOL/L (98-107); CREATININE FOR GFR 0.78 MG/DL (0.70-1.30); GLOMERULAR FILTRATION RATE > 60.0 (>56); GLUCOSE, FASTING 200 MG/DL (60-100); INR 0.91; POTASSIUM SERUM 3.9 MMOL/L (3.5-5.1); PROTHROMBIN TIME 12.5 SECONDS (12.5-14.5); SODIUM LEVEL 140 MMOL/L (136-145); TOTAL PROTEIN 7.6 G/DL (5.7-8.2)
== END ==
LOC: M SFHCLERA 11:07
PROVIDERS: ATTEND Family Medicine
DX: Z01.818 Encounter for other preprocedural examination (principal)